=== PATIENT | female | born 1930 | race African-American/Black ===

== ENCOUNTER 2017-05-07 10:01 | Emergency (ER) | payer MEDICARE, OTHER ==
[~2017-05-07] VITALS: Ht 162.6 cm; Wt 63.5 kg
[2017-05-07] MEDS ORDERED: fentaNYL 100 mcg/2 mL IV ONE (10:30)
[2017-05-07 11:04] LABS: HEMATOCRIT 41.5 % (37.0-47.0); HEMOGLOBIN 12.8 G/DL (12.0-16.0); MEAN CORPUSCULAR VOLUME 111 FL (80-99); PLATELET COUNT 320 K/UL (150-450); RED BLOOD COUNT 3.75 M/UL (4.20-5.40); RED CELL DISTRIBUTION WIDTH 16.3 % (11.6-14.8); WHITE BLOOD COUNT 12.1 K/UL (4.8-10.8)
[2017-05-07 11:19] LABS: ANION GAP 8 mmol/L (5-15); BLOOD UREA NITROGEN 17 mg/dL (7-18); CALCIUM 8.4 MG/DL (8.5-10.1); CARBON DIOXIDE 27 MMOL/L (21-32); CHLORIDE 100 MMOL/L (98-107); CREATININE 0.8 MG/DL (0.55-1.30); POTASSIUM 3.6 MMOL/L (3.5-5.1); SODIUM 135 MMOL/L (136-145)
[2017-05-07 11:24] LABS: ALANINE AMINOTRANSFERASE < 6 U/L (12-78); ALBUMIN 3.1 G/DL (3.4-5.0); ALBUMIN/GLOBULIN RATIO 0.5 (1.0-2.7); ALKALINE PHOSPHATASE 70 U/L (46-116); ASPARTATE AMINO TRANSFERASE 12 U/L (15-37); BILIRUBIN,TOTAL 0.7 MG/DL (0.2-1.0)
--- NOTE | 2017-05-07 11:50 | Diagnostic Imaging Report ---
Indication: Neck pain Technique: Spiral acquisitions obtained through the cervical spine. No IV contrast utilized. Multiplanar reconstructions were generated. Total dose length product 237.26 mGycm. CTDIvol(s) 12.12 mGy. Dose reduction achieved using automated exposure control. Comparison: none Findings: The bony alignment is normal. No prevertebral soft tissue swelling. The vertebral body heights are preserved. No acute fractures or dislocations. There is degenerative narrowing of the anterior atlantoaxial joint. At C2-3, the disc space is preserved. There is bilateral facet arthrosis. There is mild narrowing of the neural foramina bilaterally. At C3-4, there is moderate to severe degenerative disc narrowing. Large posterior osteophytes result in moderate narrowing of the spinal canal and quite likely impinge upon the bilateral lateral recesses. There is severe narrowing of the bilateral neural foramina. At C4-5, there is moderate to severe degenerative disc narrowing. There is mild bilateral facet arthrosis. Large posterior osteophytes result in moderate narrowing of the spinal canal, and likely significant impingement upon the bilateral lateral recesses, particularly on the left. There is severe narrowing of the bilateral neural foramina, nearly completely obliterated on the left. At C5-6, there is only minimal degenerative disc narrowing. There is mild bilateral facet arthrosis. No significant disc bulge or protrusion. There is minimal left, moderate right neural foraminal stenosis. At C6-7, the disc space is preserved. There is only minimal neural foraminal stenosis on the right. There is bilateral facet arthrosis. At C7-T1, no significant disc bulge or protrusion, spinal stenosis, or neural foraminal narrowing The included extraspinal soft tissues are unremarkable. Impression: No acute bony trauma Extensive degenerative change, as described The CT scanner at [facility] is accredited by the [employer] and the scans are performed using protocols designed to limit radiation exposure to as low as reasonably achievable to attain images of sufficient resolution adequate for diagnostic evaluation.
[2017-05-07] MEDS ORDERED: HYDROmorphone 1mg/ml Carpuject IVP ONE (12:00)
[2017-05-07] MEDS ORDERED: Hydromorphone 0.5mg/0.5ml inj IVP ONE (12:15)
[2017-05-07 12:30] VITALS: BP 145/80
--- NOTE | 2017-05-07 12:55 | Diagnostic Imaging Report ---
Indication: Chest pain Technique: One view of the chest Comparison: none Findings: There is haziness at the left lung base. This may indicate a small amount of pleural fluid versus infiltrate. The heart size is normal. The aorta is tortuous and calcified. Impression: Left basilar opacity, may reflect pleural fluid and or hazy consolidation. Correlate with clinical findings Other findings as noted
--- NOTE | 2017-05-07 14:58 | Emergency Room Report ---
History of Present Illness General Chief Complaint: Pain Source: Patient Present Illness HPI Patient presents with several weeks of neck pain which has worsened over the last 3 days. She had a steroid injection from her PMD 2 weeks ago which helped somewhat for a few days. Gradually after this, the pain has increased. No trauma. The pain was severe last night and she could not sleep 10/10 - as is now. It radiates bilaterally to her shoulders. There is no numbness or weakness in her arms or extremities. There is some headache, but minimal compared to neck pain. She is scheduled for MRI soon. No sore throat, fevers. Not on blood thinners. No chest pain, NVD, dysuria, swelling or pain in calves. No rashes. Allergies: Coded Allergies: No Known Allergies (Unverified , 05/07/17) Patient History Past Medical History: see triage record Social History: Denies: smoking Social History Narrative with daughter Reviewed Nursing Documentation: PMH: Agreed, PSxH: Agreed Nursing Documentation-PMH Past Medical History: No History, Except For Review of Systems All Other Systems: negative except mentioned in HPI Physical Exam Vital Signs Date Time Temp Pulse Resp B/P (MAP) Pulse Ox O2 Delivery O2 Flow Rate FiO2 05/07/17 10:09 97.3 74 18 135/71 98 Room Air Sp02 EP Interpretation: reviewed, normal General Appearance: well appearing, GCS 15, mild distress Head: normocephalic Eyes: bilateral eye normal inspection, bilateral eye PERRL ENT: moist mucus membranes Neck: no bony tend, tender - bilaterally, not point tenderness, significant muscle spasm with decreased ROm Respiratory: chest non-tender, lungs clear, normal breath sounds Cardiovascular #1: regular rate, rhythm Cardiovascular #2: 2+ radial (R) Gastrointestinal: normal inspection, normal bowel sounds, non tender, no mass, non-distended Musculoskeletal: back normal, gait/station normal, normal range of motion Neurologic: alert, oriented x3, motor strength/tone normal, DTRs symmetric, sensory intact, cerebellar normal, normal gait, speech normal Psychiatric: other - in pain Skin: normal inspection, warm/dry Medical Decision Making Diagnostic Impression: Primary Impression: Cervical pain Additional Impressions: Osteoarthritis Qualified Codes: M15.0 - Primary generalized (osteo)arthritis Degenerative disk disease Qualified Codes: M50.320 - Other cervical disc degeneration, mid-cervical region, unspecified level Osteophyte of cervical spine ER Course Patient with severe neck pain. Ddx: DJD, torticollis, disk disease, other muscle spasm, occult fx amongst others. Severe pain needs urgent evaluation and treatment. Labs, EKG, CXR and CT of neck indicated. Treatment with IV fentanyl and zofran. No red flag sy or findings, but severe pain. Lack of fever makes infective process less likely. Minimal improvement with fentanyl. Dilaudid ordered. EKG RBBB, CXR negative, labs with leukocytosis, elevated ESR, c-reactive protein. CT with DJD and some impingement mostly C45 level. Patient with significant improvement with analgesia. I offered hospitalization if pain was not controlled. Patient requests trial as outpatient. Cervical collar applied by tech with good position and some improvement. Patient stable for outpatient observation and treatment. Discussed with daughter 05/09 - patient doing better. Discussed lab results and advised to return if not doing well. Laboratory Tests Test 05/07/17 10:45 White Blood Count 12.1 K/UL (4.8-10.8) H Red Blood Count 3.75 M/UL (4.20-5.40) L Hemoglobin 12.8 G/DL (12.0-16.0) Hematocrit 41.5 % (37.0-47.0) Mean Corpuscular Volume 111 FL (80-99) H Mean Corpuscular Hemoglobin 34.2 PG (27.0-31.0) H Mean Corpuscular Hemoglobin Concent 30.9 G/DL (32.0-36.0) L Red Cell Distribution Width 16.3 % (11.6-14.8) H Platelet Count 320 K/UL (150-450) Mean Platelet Volume 6.6 FL (6.5-10.1) Neutrophils (%) (Auto) % (45.0-75.0) Lymphocytes (%) (Auto) % (20.0-45.0) Monocytes (%) (Auto) % (1.0-10.0) Eosinophils (%) (Auto) % (0.0-3.0) Basophils (%) (Auto) % (0.0-2.0) Differential Total Cells Counted 100 Neutrophils % (Manual) 82 % (45-75) H Lymphocytes % (Manual) 8 % (20-45) L Monocytes % (Manual) 10 % (1-10) Eosinophils % (Manual) 0 % (0-3) Basophils % (Manual) 0 % (0-2) Band Neutrophils 0 % (0-8) Platelet Estimate Adequate Platelet Morphology Normal Anisocytosis 1+ Macrocytosis 1+ Erythrocyte Sedimentation Rate 81 MM/HR (0-42) H Prothrombin Time 10.2 SEC (9.30-11.50) Prothrombin Time INR 1.0 (0.9-1.1) PTT 24 SEC (23-33) Sodium Level 135 MMOL/L (136-145) L Potassium Level 3.6 MMOL/L (3.5-5.1) Chloride Level 100 MMOL/L (98-107) Carbon Dioxide Level 27 MMOL/L (21-32) Anion Gap 8 mmol/L (5-15) Blood Urea Nitrogen 17 mg/dL (7-18) Creatinine 0.8 MG/DL (0.55-1.30) Estimate Glomerular Filtration Rate mL/min (>60) Glucose Level 111 MG/DL (74-106) H Calcium Level 8.4 MG/DL (8.5-10.1) L Total Bilirubin 0.7 MG/DL (0.2-1.0) Aspartate Amino Transferase (AST) 12 U/L (15-37) L Alanine Aminotransferase (ALT) < 6 U/L (12-78) L Alkaline Phosphatase 70 U/L (46-116) C-Reactive Protein, Quantitative 11.9 mg/dL (0.00-0.90) H Total Protein 8.9 G/DL (6.4-8.2) H Albumin 3.1 G/DL (3.4-5.0) L Globulin 5.8 g/dL Albumin/Globulin Ratio 0.5 (1.0-2.7) L EKG Diagnostic Results Rate: normal Rhythm: NSR ST Segments: no acute changes - RBBB Rhythm Strip Diag. Results EP Interpretation: yes Rhythm: NSR, no PVC's, no ectopy, other - from EKG CT/MRI/US Diagnostic Results CT/MRI/US Diagnostic Results : Imaging Test Ordered: c spine Impression Findings: The bony alignment is normal. No prevertebral soft tissue swelling. The vertebral body heights are preserved. No acute fractures or dislocations. There is degenerative narrowing of the anterior atlantoaxial joint. At C2-3, the disc space is preserved. There is bilateral facet arthrosis. There is mild narrowing of the neural foramina bilaterally. At C3-4, there is moderate to severe degenerative disc narrowing. Large posterior osteophytes result in moderate narrowing of the spinal canal and quite likely impinge upon the bilateral lateral recesses. There is severe narrowing of the bilateral neural foramina. At C4-5, there is moderate to severe degenerative disc narrowing. There is mild bilateral facet arthrosis. Large posterior osteophytes result in moderate narrowing of the spinal canal, and likely significant impingement upon the bilateral lateral recesses, particularly on the left. There is severe narrowing of the bilateral neural foramina, nearly completely obliterated on the left. At C5-6, there is only minimal degenerative disc narrowing. There is mild bilateral facet arthrosis. No significant disc bulge or protrusion. There is minimal left, moderate right neural foraminal stenosis. At C6-7, the disc space is preserved. There is only minimal neural foraminal stenosis on the right. There is bilateral facet arthrosis. At C7-T1, no significant disc bulge or protrusion, spinal stenosis, or neural foraminal narrowing The included extraspinal soft tissues are unremarkable. Impression: No acute bony trauma Extensive degenerative change, as described Last Vital Signs Date Time Temp Pulse Resp B/P (MAP) Pulse Ox O2 Delivery O2 Flow Rate FiO2 05/07/17 15:25 97.6 70 16 158/97 94 Room Air Status: improved Disposition: HOME, SELF-CARE Condition: Improved Scripts Ibuprofen* (MOTRIN*) 600 Mg Tablet 600 MG ORAL Q6H Y for For Pain, #20 TAB Prov: Kwaku Morton M.D. 05/07/17 Tramadol Hcl* (ULTRAM*) 50 Mg Tablet 50 MG ORAL Q6H Y for For Pain, #20 TAB 0 Refills Prov: Kwaku Morton M.D. 05/07/17 Referrals: NON PHYSICIAN (PCP) Kwaku Morton M.D. May 07, 2017 14:58
[2017-05-07] MEDS ORDERED: TRAMADOL HCL50 MG ORAL (15:00)
[2017-05-07] MEDS ORDERED: IBUPROFEN600 MG ORAL (15:00)
[2017-05-07 15:25] VITALS: BP 158/97
--- NOTE | 2017-05-19 00:14 | Cardiology Report ---
APPROVED REPORT EKG Measurement Heart [id number] Normal sinus rhythm Right bundle branch block Abnormal ECG
== END 2017-05-07 15:25 | disposition home or self-care (01) ==
LOC: EMR 10:46
DX: M54.2 Cervicalgia (principal); M50.321 Other cervical disc degeneration at C4-C5 level; M47.812 Spondylosis without myelopathy or radiculopathy, cervical region; R79.89 Other specified abnormal findings of blood chemistry; D72.829 Elevated white blood cell count, unspecified
CPT/HCPCS: 36415; 71010; 72125; 80053; 85007; 85025; 85610; 85651; 85730; 86140; 93005; 96374; 96375; 99284; J1170; J2405; J3010

== ENCOUNTER 2017-09-27 16:10 | Inpatient (IN) | payer MEDICARE, OTHER ==
[~2017-09-27] VITALS: Ht 175.3 cm; Wt 69.7 kg
[2017-09-27] VITALS (7 sets, daily range): BP systolic 92–114; BP diastolic 55–71
[~2017-09-27 16:10] MED LIST: IBUPROFEN600 MG ORAL; TRAMADOL HCL50 MG ORAL
[2017-09-27] MEDS ORDERED: Pantoprazole Inj IV ONE (16:15)
[2017-09-27] MEDS ORDERED: Morphine Sulfate 4mg/ml Inj IVP ONE (16:30)
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
[2017-09-27 16:41] LABS: HEMATOCRIT 42.2 % (37.0-47.0); HEMOGLOBIN 13.3 G/DL (12.0-16.0); MEAN CORPUSCULAR VOLUME 115 FL (80-99); PLATELET COUNT 113 K/UL (150-450); RED BLOOD COUNT 3.68 M/UL (4.20-5.40); RED CELL DISTRIBUTION WIDTH 18.6 % (11.6-14.8); WHITE BLOOD COUNT 8.3 K/UL (4.8-10.8)
[2017-09-27 17:00] LABS: ANION GAP 25 mmol/L (5-15); BLOOD UREA NITROGEN 22 mg/dL (7-18); CALCIUM 9.2 MG/DL (8.5-10.1); CARBON DIOXIDE 13 MMOL/L (21-32); CHLORIDE 102 MMOL/L (98-107); CREATININE 1.7 MG/DL (0.55-1.30); POTASSIUM 3.6 MMOL/L (3.5-5.1); SODIUM 140 MMOL/L (136-145)
[2017-09-27 17:04] LABS: ALANINE AMINOTRANSFERASE 87 U/L (12-78); ALBUMIN 3.2 G/DL (3.4-5.0); ALBUMIN/GLOBULIN RATIO 0.7 (1.0-2.7); ALKALINE PHOSPHATASE 55 U/L (46-116); ASPARTATE AMINO TRANSFERASE 109 U/L (15-37); BILIRUBIN,TOTAL 0.4 MG/DL (0.2-1.0)
[2017-09-27] MEDS ORDERED: Piperacillin/Tazobactam 3.375 GM in NS 110 ML IVPB ONE (17:30)
[2017-09-27] MEDS ORDERED: BETIMOL5 M2 OP (18:53)
[2017-09-27] MEDS ORDERED: HYDREA500 MG PO (18:53)
[2017-09-27] MEDS ORDERED: Milk of Magnesia 30ml Ud ORAL PRN (23:15)
[2017-09-28] VITALS (24 sets, daily range): BP systolic 87–115; BP diastolic 54–67
[2017-09-28] MEDS ORDERED: Piperacillin/Tazobactam 3.375 GM in D5W 110 ML IVPB SCH (01:00)
[2017-09-28 07:16] LABS: ALANINE AMINOTRANSFERASE 196 U/L (12-78); ALBUMIN 2.8 G/DL (3.4-5.0); ALKALINE PHOSPHATASE 56 U/L (46-116); ASPARTATE AMINO TRANSFERASE 222 U/L (15-37); BILIRUBIN,DIRECT 0.1 MG/DL (0.0-0.3); BILIRUBIN,TOTAL 0.5 MG/DL (0.2-1.0)
[2017-09-28 07:18] LABS: BASOPHILS % (AUTO) 0.8 % (0.0-2.0); EOSINOPHILS % (AUTO) 0.7 % (0.0-3.0); HEMOGLOBIN 11.1 G/DL (12.0-16.0); LYMPHOCYTES % (AUTO) 34.9 % (20.0-45.0); MEAN CORPUSCULAR VOLUME 110 FL (80-99); MONOCYTES % (AUTO) 7.3 % (1.0-10.0); NEUTROPHILS % (AUTO) 56.2 % (45.0-75.0); PLATELET COUNT 130 K/UL (150-450); RED CELL DISTRIBUTION WIDTH 18.4 % (11.6-14.8); WHITE BLOOD COUNT 6.6 K/UL (4.8-10.8)
[2017-09-28 07:19] LABS: ALANINE AMINOTRANSFERASE 198 U/L (12-78); ALBUMIN 2.9 G/DL (3.4-5.0); ALBUMIN/GLOBULIN RATIO 0.7 (1.0-2.7); ALKALINE PHOSPHATASE 57 U/L (46-116); ANION GAP 9 mmol/L (5-15); ASPARTATE AMINO TRANSFERASE 220 U/L (15-37); BILIRUBIN,TOTAL 0.6 MG/DL (0.2-1.0); BLOOD UREA NITROGEN 22 mg/dL (7-18); CALCIUM 8.2 MG/DL (8.5-10.1); CARBON DIOXIDE 25 MMOL/L (21-32); CHLORIDE 109 MMOL/L (98-107); CREATININE 1.3 MG/DL (0.55-1.30); POTASSIUM 4.2 MMOL/L (3.5-5.1); SODIUM 143 MMOL/L (136-145)
[2017-09-28] MEDS ORDERED: Aspirin EC 81mg tab ORAL SCH (09:00)
[2017-09-28] MEDS: Heparin 5000 units/ml inj SUBQ SCH ×2 (09:00→21:32)
--- NOTE | 2017-09-28 09:33 | Diagnostic Imaging Report ---
Indication: Abdominal pain Technique: Continuous helical transaxial imaging of the abdomen and pelvis was obtained from the lung bases to the pubic symphysis. No intravenous contrast was administered. Coronal 2-D reformats were also obtained. Automatic Exposure Control was utilized. Total Dose length Product (DLP): 668.[address] Dose Index Volume (CTDIvol): 13.88 mGy Comparison: none Findings: The lung bases are essentially clear. There is a small hiatal hernia present. Solid organ evaluation limited by lack of contrast material. The spleen is absent. Small nodule noted in the left upper quadrant may be regenerating splenic tissue. There is suggestion of some ill definition and thickening of the wall the gallbladder. Correlate clinically. There is a mild apparent hydroureteronephrosis on the right side. There is no evidence of obstructing stone or nonobstructing stone. Small amount of air noted in the urinary bladder which may be echogenic from recent Cobian placement. Correlate clinically. Moderate fecal retention in the rectum which is distended. Prior partial colon resection noted in the area of the cecum. Correlate clinically. No evidence of bowel obstruction. No free fluid is identified. There is narrowing of intervertebral discs and accompanying endplate osteophyte formation. Hypertrophied facet joints also demonstrated.. IMPRESSION: Moderate fecal retention and impacted slightly distended rectum. Right hydronephrosis. No evidence of obstructing stone. Findings could be on the basis of recently passed stone or pyelonephritis. Correlate clinically Scarring in the left kidney. Suggestion of wall thickening involving the gallbladder. Underlying stones not excluded. Status post previous partial cecal resection and surgery in the right lower quadrant abdomen. Degenerative changes of the spine. Absent spleen. Small nodule may be accessory or regenerating splenic nodule. Periportal edema nonspecific. Hiatal hernia 6 [facility] has communicated the preliminary results to the Emergency Department. Their findings are largely concordant with this report. The CT scanner at [facility] is accredited by the [employer] and the scans are performed using dose optimization techniques as appropriate to a performed exam including Automatic Exposure control.
[2017-09-28] MEDS: Piperacillin/Tazobactam 3.375 GM in D5W 110 ML IVPB SCH ×2 (09:42→17:12)
[2017-09-28] MEDS: Timolol 0.5% Op Soln 2.5ml BOTH EYES SCH ×2 (10:43→17:12)
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
--- NOTE | 2017-09-28 10:55 | Diagnostic Imaging Report ---
Indication: Chest pain Comparison: 05/07/2017 A single view chest radiograph was obtained. Findings: No definite infiltrate or pulmonary vascular congestion identified. The heart is enlarged. The aorta is mildly enlarged consistent with atherosclerotic vascular disease. The bones are osteopenic. Impression: No acute disease
--- NOTE | 2017-09-28 13:27 | Consultation ---
History of Present Illness General Date patient seen: September 28, 2017 Chief Complaint: Dyspnea/Respdistress Reason for Consultation: abdominal pain Present Illness HPI 86F presented to ED with complaints of sob, respiratory discomfort, abdominal pain. in ED found to have abnormal labs and exam with pain. was admitted to ICU for care and management. given fluids for resuscitation and surgery called to evaluate abdominal pain. CT with mild gb wall thickening. abdominal pain improved with fluids. Allergies: Coded Allergies: No Known Allergies (Unverified , 09/27/17) Medication History Scheduled PRN Ibuprofen* (Motrin*), 600 MG ORAL Q6H PRN for For Pain Tramadol Hcl* (Ultram*), 50 MG ORAL Q6H PRN for For Pain Miscellaneous Medications Hydroxyurea* (Hydrea*), Unknown Dose PO, (Reported) Timolol (Betimol), Unknown Dose OP, (Reported) Patient History History Provided By: Patient, Medical Record, PMD Healthcare decision maker N Resuscitation status Full Code Advanced Directive on File Past Medical/Surgical History Past Medical/Surgical History: (1) Osteoarthritis (2) Cervical pain (3) Degenerative disk disease (4) Osteophyte of cervical spine (5) Dyspnea and respiratory abnormalities (6) Dyspnea (7) Lactic acidosis (8) Abdominal pain (9) Severe sepsis (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 Review of Systems All Other Systems: negative except mentioned in HPI Physical Exam General Appearance: no apparent distress, alert Lines, tubes and drains: peripheral HEENT: mucous membranes moist, PERRL Neck: normal inspection Respiratory/Chest: lungs clear, normal breath sounds, no respiratory distress, no accessory muscle use Cardiovascular/Chest: normal peripheral pulses, normal rate Abdomen: normal bowel sounds, non tender, soft, no organomegaly, no mass Extremities: normal range of motion Skin Exam: normal pigmentation Neurologic: alert, responsive Last 24 Hour Vital Signs Date Time Temp Pulse Resp B/P (MAP) Pulse Ox O2 Delivery O2 Flow Rate FiO2 09/28/17 13:00 81 18 100/56 100 Nasal Cannula 2.0 09/28/17 12:38 83 100/59 09/28/17 12:00 80 18 100/59 100 Nasal Cannula 2.0 09/28/17 12:00 80 09/28/17 11:00 98.8 78 18 105/66 100 Nasal Cannula 2.0 98.8 09/28/17 10:00 80 20 110/64 100 Nasal Cannula 2.0 09/28/17 09:00 89 20 112/66 100 Nasal Cannula 2.0 09/28/17 08:00 87 09/28/17 08:00 93 22 107/56 99 Nasal Cannula 2.0 09/28/17 07:00 88 20 98/61 100 Nasal Cannula 2.0 09/28/17 06:00 98.0 92 20 96/57 100 Nasal Cannula 2.0 98.0 09/28/17 05:00 93 21 93/61 100 Nasal Cannula 2.0 09/28/17 04:00 97.0 91 21 89/59 100 Nasal Cannula 2.0 97.0 09/28/17 04:00 94 09/28/17 03:00 91 21 87/54 100 Nasal Cannula 2.0 09/28/17 02:00 94 21 97/61 100 Nasal Cannula 2.0 09/28/17 01:00 96 18 92/63 100 Nasal Cannula 2.0 09/28/17 00:00 97.1 96 20 95/59 100 Nasal Cannula 2.0 97.1 09/28/17 00:00 97 09/27/17 23:00 97 21 92/64 100 Nasal Cannula 2.0 09/27/17 22:00 102 21 93/61 100 Nasal Cannula 3.0 09/27/17 21:00 102 21 102/67 100 Nasal Cannula 3.0 09/27/17 20:00 105 09/27/17 20:00 94.4 97 20 114/67 97 Nasal Cannula 3.0 94.4 09/27/17 20:00 96.4 110 20 100/71 99 Nasal Cannula 3.0 96.4 09/27/17 20:00 [id number] 97 20 114/67 97 Nasal Cannula 3.0 201.9 09/27/17 19:10 20 114/67 97 Nasal Cannula 3.0 09/27/17 17:15 112 22 96/55 94 Nasal Cannula 3.0 09/27/17 16:45 120 20 106/70 95 Non-Rebreather 15.0 09/27/17 16:34 120 Non-Rebreather 09/27/17 16:07 120 20 102/70 95 Non-Rebreather Intake and Output 09/27/17 09/28/17 19:00 07:00 Intake Total 1610 ml 1125 ml Output Total 600 ml Balance 1610 ml 525 ml Intake IV Total 1610 ml 1125 ml Output Urine Total 600 ml # Voids 2 Laboratory Tests Test 09/27/17 16:22 09/27/17 16:35 09/27/17 19:32 09/28/17 05:55 White Blood Count 8.3 K/UL (4.8-10.8) 6.6 K/UL (4.8-10.8) Red Blood Count 3.68 M/UL (4.20-5.40) L 3.10 M/UL (4.20-5.40) L Hemoglobin 13.3 G/DL (12.0-16.0) 11.1 G/DL (12.0-16.0) L Hematocrit 42.2 % (37.0-47.0) 34.0 % (37.0-47.0) L Mean Corpuscular Volume 115 FL (80-99) H 110 FL (80-99) H Mean Corpuscular Hemoglobin 36.1 PG (27.0-31.0) H 35.9 PG (27.0-31.0) H Mean Corpuscular Hemoglobin Concent 31.5 G/DL (32.0-36.0) L 32.7 G/DL (32.0-36.0) Red Cell Distribution Width 18.6 % (11.6-14.8) H 18.4 % (11.6-14.8) H Platelet Count 113 K/UL (150-450) L 130 K/UL (150-450) L Mean Platelet Volume 6.6 FL (6.5-10.1) 5.6 FL (6.5-10.1) L Neutrophils (%) (Auto) % (45.0-75.0) 56.2 % (45.0-75.0) Lymphocytes (%) (Auto) % (20.0-45.0) 34.9 % (20.0-45.0) Monocytes (%) (Auto) % (1.0-10.0) 7.3 % (1.0-10.0) Eosinophils (%) (Auto) % (0.0-3.0) 0.7 % (0.0-3.0) Basophils (%) (Auto) % (0.0-2.0) 0.8 % (0.0-2.0) Differential Total Cells Counted 100 Neutrophils % (Manual) 28 % (45-75) L Lymphocytes % (Manual) 67 % (20-45) H Monocytes % (Manual) 5 % (1-10) Eosinophils % (Manual) 0 % (0-3) Basophils % (Manual) 0 % (0-2) Band Neutrophils 0 % (0-8) Nucleated Red Blood Cells 4 /100 WBC Platelet Estimate Decreased L Platelet Morphology Normal Polychromasia 1+ Anisocytosis 1+ Macrocytosis 2+ Prothrombin Time 10.7 SEC (9.30-11.50) Prothromb Time International Ratio 1.0 (0.9-1.1) Activated Partial Thromboplast Time 27 SEC (23-33) Sodium Level 140 MMOL/L (136-145) 143 MMOL/L (136-145) Potassium Level 3.6 MMOL/L (3.5-5.1) 4.2 MMOL/L (3.5-5.1) Chloride Level 102 MMOL/L (98-107) 109 MMOL/L (98-107) H Carbon Dioxide Level 13 MMOL/L (21-32) L 25 MMOL/L (21-32) Anion Gap 25 mmol/L (5-15) H 9 mmol/L (5-15) Blood Urea Nitrogen 22 mg/dL (7-18) H 22 mg/dL (7-18) H Creatinine 1.7 MG/DL (0.55-1.30) H 1.3 MG/DL (0.55-1.30) Estimat Glomerular Filtration Rate mL/min (>60) mL/min (>60) Glucose Level 394 MG/DL (74-106) H 93 MG/DL (74-106) # Calcium Level 9.2 MG/DL (8.5-10.1) 8.2 MG/DL (8.5-10.1) L Total Bilirubin 0.4 MG/DL (0.2-1.0) 0.5 MG/DL (0.2-1.0) Aspartate Amino Transf (AST/SGOT) 109 U/L (15-37) H 222 U/L (15-37) H Alanine Aminotransferase (ALT/SGPT) 87 U/L (12-78) H 196 U/L (12-78) H Alkaline Phosphatase 55 U/L (46-116) 56 U/L (46-116) Total Protein 8.1 G/DL (6.4-8.2) 6.9 G/DL (6.4-8.2) Albumin 3.2 G/DL (3.4-5.0) L 2.8 G/DL (3.4-5.0) L Globulin 4.9 g/dL 4.1 g/dL Albumin/Globulin Ratio 0.7 (1.0-2.7) L 0.7 (1.0-2.7) L Lipase 207 U/L (73-393) Lactic Acid Level 10.80 mmol/L (0.66-2.22) H 3.10 mmol/L (0.66-2.22) H 1.80 mmol/L (0.66-2.22) Magnesium Level 1.8 MG/DL (1.8-2.4) Direct Bilirubin 0.1 MG/DL (0.0-0.3) Troponin I 2.049 ng/mL (0.000-0.056) Vitamin B12 Level 454 PG/ML (193-986) Thyroid Stimulating Hormone (TSH) 1.930 uiU/mL (0.358-3.740) Test 09/28/17 12:15 Troponin I 1.067 ng/mL (0.000-0.056) Height (Feet): 5 Height (Inches): 9.00 Weight (Pounds): 140 Medications Current Medications Medications (Trade) Dose Ordered Sig/Marivel Route PRN Reason Start Time Stop Time Status Last Admin Dose Admin Acetaminophen (Tylenol) 650 mg Q4H PRN ORAL Mild Pain/Temp > 100.5 09/27/17 23:15 10/27/17 23:14 Aspirin (ASA) 81 mg DAILY ORAL 09/29/17 09:00 10/29/17 08:59 Carvedilol (Coreg) 3.125 mg EVERY 12 HOURS ORAL 09/28/17 21:00 10/28/17 20:59 Heparin Sodium (Porcine) (Heparin 5000 units/ml) 5,000 units EVERY 12 HOURS SUBQ 09/28/17 09:00 10/28/17 08:59 Magnesium Hydroxide (Mom) 30 ml HSPRN PRN ORAL Constipation 09/27/17 23:15 10/27/17 23:14 Piperacillin Sod/ Tazobactam Sod 3.375 gm/Dextrose 110 ml @ 27.5 mls/hr Q8H IVPB 09/28/17 09:00 10/05/17 08:59 09/28/17 09:42 Sodium Chloride 1,000 ml @ 125 mls/hr Q8H IV 09/27/17 21:30 10/27/17 21:29 09/28/17 05:31 Timolol Maleate (Timoptic 0.5% Op Soln) 1 drop TWICE A DAY BOTH EYES 09/28/17 09:00 10/28/17 08:59 09/28/17 10:43 Assessment/Plan Problem List: (1) Abdominal pain Assessment & Plan: abdominal pain resolved since admission. lactic acidosis resolved. labs improved. lft's elevated but improving. troponin elevated but now trending down. exam being. CT with mild gb wall thickening. abdominal pain and elevated lft's likely related to low flow state. likely very dehydrated on admission as noted by lactic acidosis and now improved with resuscitation. will await ultrasound findings as well. okay for diet will cont to follow with recs. thank you for this consultation ICD Codes: R10.9 - Unspecified abdominal pain SNOMED: [id number] Qualifiers: Qualified Codes: R10.84 - Generalized abdominal pain Status: stable ZakiMomo basilio September 28, 2017 13:27
--- NOTE | 2017-09-28 13:45 | Progress Note ---
DATE: 09/28/2017 CARDIOLOGY PROGRESS NOTE SUBJECTIVE: The patient was seen last evening in the intensive care unit. Her blood pressure was tenuous. She was able to avoid pressors, but still required volume resuscitation. This morning, she feels better. She has no nausea, vomiting, or dizziness and has no chest pain. OBJECTIVE: VITAL SIGNS: Blood pressure 107/56, pulse 87, respirations 22, afebrile, and oxygen saturation on 2 liters is 99%. HEENT: Conjunctivae are pink. Oropharynx clear. NECK: Supple. LUNGS: Clear. CARDIAC: Regular rhythm and rate. Normal S1, S2 with a fourth heart sound. ABDOMEN: Soft. No focal tenderness. No edema of the lower extremities. LABORATORY DATA: Notable for troponin of 2.049. AST and ALT are elevated at 220 and 198. Alkaline phosphatase is normal. Albumin is 2.8. White count is 6.6 and hemoglobin 11.1. IMPRESSION: 1. Acute myocardial infarction likely precipitated by hypoperfusion in the setting of shock. 2. Sepsis with shock. 3. Lactic acidosis, recovered. 4. Transaminitis reflecting possible acute hepatobiliary process. PLAN: 1. Continue IV fluids. 2. Monitor volume status. 3. Add beta-rad, antiplatelet therapy with caution if no signs of bleeding. 4. Await further imaging studies of the hepatobiliary tract as well as an echocardiogram. Kwaku Morel M.D. DR: SALLY JOB#: [id number] CC:
--- NOTE | 2017-09-28 13:48 | Cardiology Report ---
APPROVED REPORT EXAM: Two-dimensional and M-mode echocardiogram with Doppler and color Doppler. M-Mode DIMENSIONS IVSd1.2 (0.7-1.1cm)Left Atrium (MM)2.9 (1.6-4.0cm) LVDd3.5 (3.5-5.6cm)Aortic Root3.3 (2.0-3.7cm) PWd1.2 (0.7-1.1cm)Aortic Cusp Exc.1.7 (1.5-2.0cm) IVSs1.5 cm LVDs2.3 (2.5-4.0cm) PWs1.5 cm Normal left ventricular chamber size, systolic function and wall motion. Left ventricular ejection fraction estimated to be 65-70 %. No evidence of left ventricular hypertrophy. No evidence of pericardial effusion. All other cardiac chamber sizes are within normal limits. Focal aortic valve sclerosis with adequate cusp excursion. Mildly Thickened mitral valve leaflets with normal excursion. Mildly Mitral annulus and aortic root calcification. Normal pulmonic valve structure. Normal tricuspid valve structure. IVC dilated at 2.6cm without physiologic collapse suggestive of increased RA pressure. A color flow and spectral Doppler study was performed and revealed: No aortic regurgitation. Trace mitral regurgitation. Mitral diastolic velocities suggest reduced left ventricular relaxation c/w mild LV diastolic dysfunction (Grade I ). Moderate to severe tricuspid regurgitation. Tricuspid systolic velocities suggests peak right ventricular systolic pressure of 40 mmHg, consistent with mild pulmonary hypertension. No Pulmonic regurgitation present.
--- NOTE | 2017-09-28 13:50 | Cardiology Report ---
APPROVED REPORT EKG Measurement Heart [id number] Sinus tachycardia Right atrial enlargement Right bundle branch block Abnormal ECG
--- NOTE | 2017-09-28 16:54 | Diagnostic Imaging Report ---
Indication:Abdominal pain Technique: Grayscale and duplex Doppler imaging of the abdomen performed. Comparison: CT abdomen 09/27/2017 Findings: The liver, demonstrated part of the pancreas, gallbladder, aorta and IVC appear unremarkable. Spleen is not seen. Small nodule noted in the left upper quadrant likely regenerating splenic tissue. Kidneys are unremarkable. Again there is minimal fullness in the right renal pelvis. 1 cm right renal cyst noted. There is no biliary ductal dilatation identified. Doppler evaluation of the main portal vein shows patency. There is trace ascites in the area of the liver. No hydronephrosis seen. Impression: No acute findings. Spleen not identified. Small splenic nodule noted. Trace ascites in the right side of abdomen. Right renal cyst. Minimal pelvocaliectasis in the right kidney.
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
--- NOTE | 2017-09-28 23:10 | Consultation ---
History of Present Illness General Date patient seen: September 28, 2017 Chief Complaint: Dyspnea/Respdistress Referring physician: Dr. Morel Reason for Consultation: abdominal pain Present Illness HPI 86-year-old female brought in by EMS after increased abdominal pain as well as hypotension. The pt was confused upon admission. During my evaluation the pt was more alert and was able to answer simple questions. the pt was somewhat irritable and has cognitive impairment Allergies: Coded Allergies: No Known Allergies (Unverified , 09/27/17) Medication History Scheduled PRN Ibuprofen* (Motrin*), 600 MG ORAL Q6H PRN for For Pain Tramadol Hcl* (Ultram*), 50 MG ORAL Q6H PRN for For Pain Miscellaneous Medications Hydroxyurea* (Hydrea*), Unknown Dose PO, (Reported) Timolol (Betimol), Unknown Dose OP, (Reported) Patient History Limited by: medical condition History Provided By: Patient, Medical Record Healthcare decision maker N Resuscitation status Full Code Advanced Directive on File Past Medical/Surgical History Past Medical/Surgical History: (1) Dyspnea (2) Lactic acidosis (3) Severe sepsis (4) History of hematologic disorder (5) Dyspnea and respiratory abnormalities (6) Osteoarthritis (7) Cervical pain (8) Degenerative disk disease (9) Osteophyte of cervical spine (10) Abdominal pain Review of Systems Psychiatric: Reports: anxiety Physical Exam General Appearance: WD/WN, no apparent distress, alert Last 24 Hour Vital Signs Date Time Temp Pulse Resp B/P (MAP) Pulse Ox O2 Delivery O2 Flow Rate FiO2 09/28/17 22:00 77 20 107/59 99 Nasal Cannula 2.0 09/28/17 21:31 81 115/57 09/28/17 21:00 76 20 115/57 100 Nasal Cannula 2.0 09/28/17 20:00 98.3 82 17 102/57 98 Nasal Cannula 2.0 98.3 09/28/17 20:00 80 09/28/17 19:00 75 17 113/67 100 Nasal Cannula 2.0 09/28/17 18:00 77 17 110/66 100 Nasal Cannula 2.0 09/28/17 17:00 82 17 105/63 100 Nasal Cannula 2.0 09/28/17 16:00 77 09/28/17 16:00 98.7 78 18 110/65 100 Nasal Cannula 2.0 98.7 09/28/17 15:00 80 18 102/57 100 Nasal Cannula 2.0 09/28/17 14:00 79 18 105/55 100 Nasal Cannula 2.0 09/28/17 13:00 81 18 100/56 100 Nasal Cannula 2.0 09/28/17 12:38 83 100/59 09/28/17 12:00 80 18 100/59 100 Nasal Cannula 2.0 09/28/17 12:00 80 09/28/17 11:00 98.8 78 18 105/66 100 Nasal Cannula 2.0 98.8 09/28/17 10:00 80 20 110/64 100 Nasal Cannula 2.0 09/28/17 09:00 89 20 112/66 100 Nasal Cannula 2.0 09/28/17 08:00 87 09/28/17 08:00 93 22 107/56 99 Nasal Cannula 2.0 09/28/17 07:00 88 20 98/61 100 Nasal Cannula 2.0 09/28/17 06:00 98.0 92 20 96/57 100 Nasal Cannula 2.0 98.0 09/28/17 05:00 93 21 93/61 100 Nasal Cannula 2.0 09/28/17 04:00 97.0 91 21 89/59 100 Nasal Cannula 2.0 97.0 09/28/17 04:00 94 09/28/17 03:00 91 21 87/54 100 Nasal Cannula 2.0 09/28/17 02:00 94 21 97/61 100 Nasal Cannula 2.0 09/28/17 01:00 96 18 92/63 100 Nasal Cannula 2.0 09/28/17 00:00 97.1 96 20 95/59 100 Nasal Cannula 2.0 97.1 09/28/17 00:00 97 Intake and Output 09/27/17 09/28/17 19:00 07:00 Intake Total 1610 ml 1125 ml Output Total 600 ml Balance 1610 ml 525 ml IV Total 1610 ml 1125 ml Output Urine Total 600 ml # Voids 2 Laboratory Tests Test 09/28/17 05:55 09/28/17 12:15 White Blood Count 6.6 K/UL (4.8-10.8) Red Blood Count 3.10 M/UL (4.20-5.40) L Hemoglobin 11.1 G/DL (12.0-16.0) L Hematocrit 34.0 % (37.0-47.0) L Mean Corpuscular Volume 110 FL (80-99) H Mean Corpuscular Hemoglobin 35.9 PG (27.0-31.0) H Mean Corpuscular Hemoglobin Concent 32.7 G/DL (32.0-36.0) Red Cell Distribution Width 18.4 % (11.6-14.8) H Platelet Count 130 K/UL (150-450) L Mean Platelet Volume 5.6 FL (6.5-10.1) L Neutrophils (%) (Auto) 56.2 % (45.0-75.0) Lymphocytes (%) (Auto) 34.9 % (20.0-45.0) Monocytes (%) (Auto) 7.3 % (1.0-10.0) Eosinophils (%) (Auto) 0.7 % (0.0-3.0) Basophils (%) (Auto) 0.8 % (0.0-2.0) Sodium Level 143 MMOL/L (136-145) Potassium Level 4.2 MMOL/L (3.5-5.1) Chloride Level 109 MMOL/L (98-107) H Carbon Dioxide Level 25 MMOL/L (21-32) Anion Gap 9 mmol/L (5-15) Blood Urea Nitrogen 22 mg/dL (7-18) H Creatinine 1.3 MG/DL (0.55-1.30) Estimat Glomerular Filtration Rate mL/min (>60) Glucose Level 93 MG/DL (74-106) # Lactic Acid Level 1.80 mmol/L (0.66-2.22) Calcium Level 8.2 MG/DL (8.5-10.1) L Magnesium Level 1.8 MG/DL (1.8-2.4) Total Bilirubin 0.5 MG/DL (0.2-1.0) Direct Bilirubin 0.1 MG/DL (0.0-0.3) Aspartate Amino Transf (AST/SGOT) 222 U/L (15-37) H Alanine Aminotransferase (ALT/SGPT) 196 U/L (12-78) H Alkaline Phosphatase 56 U/L (46-116) Troponin I 2.049 ng/mL (0.000-0.056) 1.067 ng/mL (0.000-0.056) Total Protein 6.9 G/DL (6.4-8.2) Albumin 2.8 G/DL (3.4-5.0) L Globulin 4.1 g/dL Albumin/Globulin Ratio 0.7 (1.0-2.7) L Vitamin B12 Level 454 PG/ML (193-986) Thyroid Stimulating Hormone (TSH) 1.930 uiU/mL (0.358-3.740) Height (Feet): 5 Height (Inches): 9.00 Weight (Pounds): 140 Medications Current Medications Medications (Trade) Dose Ordered Sig/Marivel Route PRN Reason Start Time Stop Time Status Last Admin Dose Admin Acetaminophen (Tylenol) 650 mg Q4H PRN ORAL Mild Pain/Temp > 100.5 09/27/17 23:15 10/27/17 23:14 Aspirin (ASA) 81 mg DAILY ORAL 09/29/17 09:00 10/29/17 08:59 Carvedilol (Coreg) 3.125 mg EVERY 12 HOURS ORAL 09/28/17 21:00 10/28/17 20:59 09/28/17 21:31 Heparin Sodium (Porcine) (Heparin 5000 units/ml) 5,000 units EVERY 12 HOURS SUBQ 09/28/17 09:00 10/28/17 08:59 09/28/17 21:32 Magnesium Hydroxide (Mom) 30 ml HSPRN PRN ORAL Constipation 09/27/17 23:15 10/27/17 23:14 Piperacillin Sod/ Tazobactam Sod 3.375 gm/Dextrose 110 ml @ 27.5 mls/hr Q8H IVPB 09/28/17 09:00 10/05/17 08:59 09/28/17 17:12 Sodium Chloride 1,000 ml @ 125 mls/hr Q8H IV 09/27/17 21:30 10/27/17 21:29 09/28/17 21:45 Timolol Maleate (Timoptic 0.5% Op Soln) 1 drop TWICE A DAY BOTH EYES 09/28/17 09:00 10/28/17 08:59 09/28/17 17:12 Assessment/Plan Assessment/Plan encephalopathy resolving anxiety -no meds at this time [place] M.D. September 28, 2017 23:10
[2017-09-29] VITALS (22 sets, daily range): BP systolic 102–125; BP diastolic 50–66
[2017-09-29] MEDS: Piperacillin/Tazobactam 3.375 GM in D5W 110 ML IVPB SCH ×3 (02:18→18:12)
[2017-09-29 06:06] LABS: EOSINOPHILS % (AUTO) 2.2 % (0.0-3.0); HEMATOCRIT 34.3 % (37.0-47.0); HEMOGLOBIN 10.9 G/DL (12.0-16.0); LYMPHOCYTES % (AUTO) 26.7 % (20.0-45.0); MEAN CORPUSCULAR VOLUME 110 FL (80-99); MONOCYTES % (AUTO) 9.1 % (1.0-10.0); NEUTROPHILS % (AUTO) 61.1 % (45.0-75.0); PLATELET COUNT 123 K/UL (150-450); RED BLOOD COUNT 3.11 M/UL (4.20-5.40); RED CELL DISTRIBUTION WIDTH 18.6 % (11.6-14.8); WHITE BLOOD COUNT 6.4 K/UL (4.8-10.8)
[2017-09-29 07:24] LABS: ALANINE AMINOTRANSFERASE 137 U/L (12-78); ALBUMIN 2.6 G/DL (3.4-5.0); ALBUMIN/GLOBULIN RATIO 0.6 (1.0-2.7); ALKALINE PHOSPHATASE 48 U/L (46-116); ANION GAP 11 mmol/L (5-15); ASPARTATE AMINO TRANSFERASE 94 U/L (15-37); BILIRUBIN,TOTAL 0.7 MG/DL (0.2-1.0); BLOOD UREA NITROGEN 15 mg/dL (7-18); CALCIUM 7.4 MG/DL (8.5-10.1); CARBON DIOXIDE 20 MMOL/L (21-32); CHLORIDE 112 MMOL/L (98-107); POTASSIUM 3.8 MMOL/L (3.5-5.1); SODIUM 143 MMOL/L (136-145)
--- NOTE | 2017-09-29 07:56 | General Progress Note ---
Assessment/Plan Status: stable, progressing Assessment/Plan heparin drip monitor for bleeding abx per ID. monitor labs tawny Subjective ROS Limited/Unobtainable: No Constitutional: Reports: no symptoms HEENT: Reports: no symptoms Cardiovascular: Reports: no symptoms Respiratory: Reports: no symptoms Gastrointestinal/Abdominal: Reports: no symptoms Genitourinary: Reports: no symptoms Neurologic/Psychiatric: Reports: no symptoms Endocrine: Reports: no symptoms Hematologic/Lymphatic: Reports: no symptoms Allergies: Coded Allergies: No Known Allergies (Unverified , 09/27/17) All Systems: reviewed and negative except above Subjective no complaints. no sob. no chest pain. Acute DVT right femoral vein abd nallely- negative Objective Last 24 Hour Vital Signs Date Time Temp Pulse Resp B/P (MAP) Pulse Ox O2 Delivery O2 Flow Rate FiO2 09/29/17 07:00 74 20 107/54 100 Nasal Cannula 2.0 09/29/17 06:00 68 23 112/55 100 Nasal Cannula 2.0 09/29/17 05:00 76 23 110/57 97 Nasal Cannula 2.0 09/29/17 04:00 71 09/29/17 04:00 97.8 71 20 113/56 99 Nasal Cannula 2.0 97.8 09/29/17 03:00 72 20 103/54 100 Nasal Cannula 2.0 09/29/17 02:00 71 21 102/62 100 Nasal Cannula 2.0 09/29/17 01:00 73 21 106/58 100 Nasal Cannula 2.0 09/29/17 00:00 71 09/29/17 00:00 72 21 108/58 100 Nasal Cannula 2.0 09/29/17 00:00 98.2 73 21 113/50 100 Nasal Cannula 2.0 98.2 09/28/17 23:00 75 21 109/60 100 Nasal Cannula 2.0 09/28/17 22:00 77 20 107/59 99 Nasal Cannula 2.0 09/28/17 21:31 81 115/57 09/28/17 21:00 76 20 115/57 100 Nasal Cannula 2.0 09/28/17 20:00 98.3 82 17 102/57 98 Nasal Cannula 2.0 98.3 09/28/17 20:00 80 09/28/17 19:00 75 17 113/67 100 Nasal Cannula 2.0 09/28/17 18:00 77 17 110/66 100 Nasal Cannula 2.0 09/28/17 17:00 82 17 105/63 100 Nasal Cannula 2.0 09/28/17 16:00 77 09/28/17 16:00 98.7 78 18 110/65 100 Nasal Cannula 2.0 98.7 09/28/17 15:00 80 18 102/57 100 Nasal Cannula 2.0 09/28/17 14:00 79 18 105/55 100 Nasal Cannula 2.0 09/28/17 13:00 81 18 100/56 100 Nasal Cannula 2.0 09/28/17 12:38 83 100/59 09/28/17 12:00 80 18 100/59 100 Nasal Cannula 2.0 09/28/17 12:00 80 09/28/17 11:00 98.8 78 18 105/66 100 Nasal Cannula 2.0 98.8 09/28/17 10:00 80 20 110/64 100 Nasal Cannula 2.0 09/28/17 09:00 89 20 112/66 100 Nasal Cannula 2.0 09/28/17 08:00 87 09/28/17 08:00 93 22 107/56 99 Nasal Cannula 2.0 Intake and Output 09/28/17 09/29/17 19:00 07:00 Intake Total 1415.0 ml 1865.0 ml Output Total 450 ml 1000 ml Balance 965.0 ml 865.0 ml Intake Oral 200 ml IV Total 1415.0 ml 1665.0 ml Output Urine Total 450 ml 1000 ml # Voids 2 2 Laboratory Tests 09/28/17 12:15: Troponin I 1.067H 09/29/17 05:05: Troponin I 0.460H, White Blood Count 6.4, Red Blood Count 3.11L, Hemoglobin 10.9L, Hematocrit 34.3L, Mean Corpuscular Volume 110H, Mean Corpuscular Hemoglobin 35.0H, Mean Corpuscular Hemoglobin Concent 31.8L, Red Cell Distribution Width 18.6H, Platelet Count 123L, Mean Platelet Volume 6.5, Neutrophils (%) (Auto) 61.1, Lymphocytes (%) (Auto) 26.7, Monocytes (%) (Auto) 9.1, Eosinophils (%) (Auto) 2.2, Basophils (%) (Auto) 1.0, Sodium Level 143, Potassium Level 3.8, Chloride Level 112H, Carbon Dioxide Level 20L, Anion Gap 11 , Blood Urea Nitrogen 15, Creatinine 1.0, Estimat Glomerular Filtration Rate , Glucose Level 98, Calcium Level 7.4L, Total Bilirubin 0.7, Aspartate Amino Transf (AST/SGOT) 94H, Alanine Aminotransferase (ALT/SGPT) 137H, Alkaline Phosphatase 48, Total Protein 6.6, Albumin 2.6L, Globulin 4.0, Albumin/Globulin Ratio 0.6L Height (Feet): 5 Height (Inches): 9.00 Weight (Pounds): 139 General Appearance: WD/WN, alert Neck: supple Cardiovascular: normal rate Respiratory/Chest: chest wall non-tender, lungs clear, normal breath sounds Abdomen: normal bowel sounds, non tender, soft, no organomegaly Edema: no edema noted Arm (L), no edema noted Arm (R), no edema noted Leg (L), no edema noted Leg (R), no edema noted Pedal (L), no edema noted Pedal (R), no edema noted 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
[2017-09-29] MEDS ORDERED: Aspirin Baby 81mg ORAL SCH (09:00)
[2017-09-29] MEDS ORDERED: Heparin 5000 units/ml inj IV ONE (09:00)
[2017-09-29] MEDS ORDERED: Heparin 25,000u/D5W 500ml 500 ML IV SCH ×3 (09:00→22:00)
[2017-09-29] MEDS: Timolol 0.5% Op Soln 2.5ml BOTH EYES SCH ×2 (09:13→18:12)
--- NOTE | 2017-09-29 16:46 | Diagnostic Imaging Report ---
Indications: Reason For Exam: SOB Technique: IV administration 5.1 mCi 99m technetium macroaggregated albumin. Images obtained over the lungs in multiple projections. Previously, patient inhaled mCi aerosolized 99M technetium DTPA. Images obtained over the lungs in multiple projections Comparison: chest radiograph of 09/27/2017 Findings: Markedly heterogeneous perfusion is seen within both lungs. Appearance of this is largely matched on the aerosol images. However, the posterior and LPO views demonstrate a single focus of decreased activity at the left lung base which demonstrates activity on the aerosol images. No corresponding radiographic abnormality. This is probably larger than 2 segments. Impression: Area of perfusion aerosol mismatch at the right lung base is larger than 2 segments and therefore findings are deemed high probability for pulmonary embolus Critical value findings phoned to Dr. Morel at the time of interpretation
--- NOTE | 2017-09-29 20:00 | Progress Note ---
DATE: 09/29/2017 CARDIOLOGY PROGRESS NOTE SUBJECTIVE: The patient is awake, alert and in no distress. She was noted to have an acute lower extremity DVT and a V/Q scan was subsequently performed, which was high probability for pulmonary embolus. OBJECTIVE: VITAL SIGNS: Blood pressure 107/54, pulse 74, respiratory rate 20 and oxygen saturation is 97% to 100% on 2 liters nasal cannula. LUNGS: Clear. CARDIAC: Regular. Normal S1 and S2. ABDOMEN: Soft. EXTREMITIES: Trace edema. LABORATORY AND DIAGNOSTIC DATA: White count 6.4 and hemoglobin 10.9. Troponin down to 0.46. BUN 15, creatinine 1, potassium 3.8 and albumin 2.6. IMPRESSION: 1. Acute pulmonary embolus. 2. Acute myocardial infarction. 3. Acute DVT of the right lower extremity. 4. Metabolic acidosis, resolved. 5. Lactic acidosis, recovered, recovering shock liver. 6. Lbetvosu-du-zamgwd protein-calorie malnutrition. 7. Critical and guarded. PLAN: 1. Full anticoagulation. 2. Cardiac monitoring. 3. Empiric antibiotics. 4. Hydration. 5. Monitor cardiorenal parameters. 6. Metabolic profile and liver function studies. Kwaku Morel M.D. DR: STEFANIE JOB#: [id number] CC:
[2017-09-29] MEDS ORDERED: Milk of Magnesia 30ml Ud ORAL PRN (23:15)
[2017-09-30] VITALS: BP 100/59
[2017-09-30] MEDS: Piperacillin/Tazobactam 3.375 GM in D5W 110 ML IVPB SCH ×3 (01:01→17:15)
[2017-09-30 01:36] LABS: INR 1.1 (0.9-1.1)
[2017-09-30] MEDS ORDERED: Heparin 25,000u/D5W 500ml 500 ML IV SCH (02:20)
[2017-09-30 04:00] VITALS: BP 115/61
[2017-09-30 08:00] VITALS: BP 101/62
--- NOTE | 2017-09-30 08:12 | General Progress Note ---
Assessment/Plan Problem List: (1) Pulmonary embolism ICD Codes: I26.99 - Other pulmonary embolism without acute cor pulmonale SNOMED: 43784180 (2) DVT (deep venous thrombosis) ICD Codes: I82.409 - Acute embolism and thrombosis of unspecified deep veins of unspecified lower extremity SNOMED: 000404218 (3) Lactic acidosis ICD Codes: E87.2 - Acidosis SNOMED: 34295291 (4) Osteoarthritis ICD Codes: M19.90 - Unspecified osteoarthritis, unspecified site SNOMED: 223581601, 96772882 (5) Cervical pain ICD Codes: M54.2 - Cervicalgia SNOMED: 20590049, 17899629 (6) Degenerative disk disease SNOMED: 27298766 (7) Abdominal pain ICD Codes: R10.9 - Unspecified abdominal pain SNOMED: 26122879 Qualifiers: Qualified Codes: R10.84 - Generalized abdominal pain Status: stable, progressing Assessment/Plan heparin drip xarelto monitor for bleeding abx per ID. monitor labs tawny Subjective ROS Limited/Unobtainable: No Constitutional: Reports: malaise, weakness HEENT: Reports: no symptoms Cardiovascular: Reports: no symptoms Respiratory: Reports: no symptoms Gastrointestinal/Abdominal: Reports: no symptoms Genitourinary: Reports: no symptoms Neurologic/Psychiatric: Reports: no symptoms Endocrine: Reports: no symptoms Hematologic/Lymphatic: Reports: no symptoms Allergies: Coded Allergies: No Known Allergies (Unverified , 09/27/17) All Systems: reviewed and negative except above Subjective trace hemoptysis- only one episode. high prob v/q. on heparin drip Objective Last 24 Hour Vital Signs Date Time Temp Pulse Resp B/P (MAP) Pulse Ox O2 Delivery O2 Flow Rate FiO2 09/30/17 05:11 60 09/30/17 04:00 97.6 72 20 115/61 99 Nasal Cannula 2.0 97.6 09/30/17 00:00 97.7 68 20 100/59 99 Nasal Cannula 2.0 97.7 09/29/17 23:59 58 09/29/17 21:00 98.0 68 26 124/58 100 Nasal Cannula 2.0 98.0 09/29/17 21:00 63 123/60 09/29/17 20:00 70 20 123/60 100 Nasal Cannula 2.0 09/29/17 20:00 67 09/29/17 19:00 68 20 125/60 100 Nasal Cannula 2.0 09/29/17 18:00 98.5 78 20 122/62 100 Nasal Cannula 2.0 98.5 09/29/17 17:00 66 20 121/59 100 Nasal Cannula 2.0 09/29/17 16:00 62 20 112/66 100 Nasal Cannula 2.0 09/29/17 16:00 72 09/29/17 15:00 68 20 110/66 100 Nasal Cannula 2.0 09/29/17 14:00 71 20 108/60 100 Nasal Cannula 2.0 09/29/17 13:00 98.8 66 20 105/55 100 Nasal Cannula 2.0 98.8 09/29/17 12:00 85 09/29/17 12:00 69 20 110/58 100 Nasal Cannula 2.0 09/29/17 11:00 71 20 103/55 100 Nasal Cannula 2.0 09/29/17 10:00 16 20 105/55 100 Nasal Cannula 2.0 09/29/17 09:13 77 110/58 09/29/17 09:00 70 20 110/55 100 Nasal Cannula 2.0 Intake and Output 09/29/17 09/30/17 19:00 07:00 Intake Total 1166.342 ml 1374.452 ml Output Total 700 ml 700 ml Balance 466.342 ml 674.452 ml Intake Oral 0 ml 0 ml IV Total 1166.342 ml 1374.452 ml Output Urine Total 700 ml 700 ml # Voids 1 Laboratory Tests 09/29/17 16:35: Activated Partial Thromboplast Time > 150*H 09/30/17 00:30: Activated Partial Thromboplast Time 129H, Prothrombin Time 11.1, Prothromb Time International Ratio 1.1 Height (Feet): 5 Height (Inches): 9.00 Weight (Pounds): 156 Objective General Appearance: WD/WN, alert Neck: supple Cardiovascular: normal rate Respiratory/Chest: chest wall non-tender, lungs clear, normal breath sounds Abdomen: normal bowel sounds, non tender, soft, no organomegaly Edema: no edema noted Arm (L), no edema noted Arm (R), no edema noted Leg (L), no edema noted Leg (R), no edema noted Pedal (L), no edema noted Pedal (R), no edema noted 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
[2017-09-30] MEDS: Aspirin Baby 81mg ORAL SCH (08:53)
[2017-09-30] MEDS: Timolol 0.5% Op Soln 2.5ml BOTH EYES SCH ×2 (09:08→17:15)
[2017-09-30] MEDS: Xarelto 15mg tab ORAL SCH ×2 (09:44→17:15)
[2017-09-30 09:54] LABS: EOSINOPHILS % (AUTO) 3.5 % (0.0-3.0); HEMATOCRIT 33.1 % (37.0-47.0); HEMOGLOBIN 10.5 G/DL (12.0-16.0); LYMPHOCYTES % (AUTO) 27.3 % (20.0-45.0); MEAN CORPUSCULAR VOLUME 110 FL (80-99); MONOCYTES % (AUTO) 7.6 % (1.0-10.0); NEUTROPHILS % (AUTO) 60.6 % (45.0-75.0); PLATELET COUNT 141 K/UL (150-450); RED BLOOD COUNT 3.01 M/UL (4.20-5.40); RED CELL DISTRIBUTION WIDTH 18.9 % (11.6-14.8); WHITE BLOOD COUNT 6.5 K/UL (4.8-10.8)
[2017-09-30 10:14] LABS: ALANINE AMINOTRANSFERASE 93 U/L (12-78); ALBUMIN 2.5 G/DL (3.4-5.0); ALBUMIN/GLOBULIN RATIO 0.6 (1.0-2.7); ALKALINE PHOSPHATASE 49 U/L (46-116); ANION GAP 11 mmol/L (5-15); ASPARTATE AMINO TRANSFERASE 59 U/L (15-37); BILIRUBIN,TOTAL 0.8 MG/DL (0.2-1.0); BLOOD UREA NITROGEN 9 mg/dL (7-18); CALCIUM 7.1 MG/DL (8.5-10.1); CARBON DIOXIDE 21 MMOL/L (21-32); CHLORIDE 111 MMOL/L (98-107); CREATININE 0.9 MG/DL (0.55-1.30); POTASSIUM 3.8 MMOL/L (3.5-5.1); SODIUM 143 MMOL/L (136-145)
[2017-09-30 12:00] VITALS: BP 109/65
--- NOTE | 2017-09-30 12:56 | General Surgery Progress Note ---
General Surgery-Progress Note Subjective Symptoms: improved, pain absent, tolerating diet, passing flatus, BM Additional Comments doing well. no complaints. Objective Last 24 Hour Vital Signs Date Time Temp Pulse Resp B/P (MAP) Pulse Ox O2 Delivery O2 Flow Rate FiO2 09/30/17 08:53 60 101/63 09/30/17 08:00 66 09/30/17 08:00 97.4 72 18 101/62 99 Nasal Cannula 2.0 97.4 09/30/17 05:11 60 09/30/17 04:00 97.6 72 20 115/61 99 Nasal Cannula 2.0 97.6 09/30/17 00:00 97.7 68 20 100/59 99 Nasal Cannula 2.0 97.7 09/29/17 23:59 58 09/29/17 21:00 98.0 68 26 124/58 100 Nasal Cannula 2.0 98.0 09/29/17 21:00 63 123/60 09/29/17 20:00 70 20 123/60 100 Nasal Cannula 2.0 09/29/17 20:00 67 09/29/17 19:00 68 20 125/60 100 Nasal Cannula 2.0 09/29/17 18:00 98.5 78 20 122/62 100 Nasal Cannula 2.0 98.5 09/29/17 17:00 66 20 121/59 100 Nasal Cannula 2.0 09/29/17 16:00 62 20 112/66 100 Nasal Cannula 2.0 09/29/17 16:00 72 09/29/17 15:00 68 20 110/66 100 Nasal Cannula 2.0 09/29/17 14:00 71 20 108/60 100 Nasal Cannula 2.0 09/29/17 13:00 98.8 66 20 105/55 100 Nasal Cannula 2.0 98.8 I&O Intake and Output 09/29/17 09/30/17 19:00 07:00 Intake Total 1166.342 ml 1374.452 ml Output Total 700 ml 700 ml Balance 466.342 ml 674.452 ml Intake Oral 0 ml 0 ml IV Total 1166.342 ml 1374.452 ml Output Urine Total 700 ml 700 ml # Voids 1 Cardiovascular: RSR Respiratory: clear Abdomen: soft, flat, non-tender, present bowel sounds Extremities: no cyanosis Laboratory Tests Test 09/29/17 16:35 09/30/17 00:30 09/30/17 08:40 Activated Partial Thromboplast Time > 150 SEC (23-33) *H 129 SEC (23-33) H Prothrombin Time 11.1 SEC (9.30-11.50) Prothromb Time International Ratio 1.1 (0.9-1.1) White Blood Count 6.5 K/UL (4.8-10.8) Red Blood Count 3.01 M/UL (4.20-5.40) L Hemoglobin 10.5 G/DL (12.0-16.0) L Hematocrit 33.1 % (37.0-47.0) L Mean Corpuscular Volume 110 FL (80-99) H Mean Corpuscular Hemoglobin 34.9 PG (27.0-31.0) H Mean Corpuscular Hemoglobin Concent 31.7 G/DL (32.0-36.0) L Red Cell Distribution Width 18.9 % (11.6-14.8) H Platelet Count 141 K/UL (150-450) L Mean Platelet Volume 7.3 FL (6.5-10.1) Neutrophils (%) (Auto) 60.6 % (45.0-75.0) Lymphocytes (%) (Auto) 27.3 % (20.0-45.0) Monocytes (%) (Auto) 7.6 % (1.0-10.0) Eosinophils (%) (Auto) 3.5 % (0.0-3.0) H Basophils (%) (Auto) 1.0 % (0.0-2.0) Sodium Level 143 MMOL/L (136-145) Potassium Level 3.8 MMOL/L (3.5-5.1) Chloride Level 111 MMOL/L (98-107) H Carbon Dioxide Level 21 MMOL/L (21-32) Anion Gap 11 mmol/L (5-15) Blood Urea Nitrogen 9 mg/dL (7-18) Creatinine 0.9 MG/DL (0.55-1.30) Estimat Glomerular Filtration Rate mL/min (>60) Glucose Level 94 MG/DL (74-106) Calcium Level 7.1 MG/DL (8.5-10.1) L Magnesium Level 1.8 MG/DL (1.8-2.4) Total Bilirubin 0.8 MG/DL (0.2-1.0) Aspartate Amino Transf (AST/SGOT) 59 U/L (15-37) H Alanine Aminotransferase (ALT/SGPT) 93 U/L (12-78) H Alkaline Phosphatase 49 U/L (46-116) Troponin I 0.164 ng/mL (0.000-0.056) Pro-B-Type Natriuretic Peptide 3453 pg/mL (0-125) H Total Protein 6.8 G/DL (6.4-8.2) Albumin 2.5 G/DL (3.4-5.0) L Globulin 4.3 g/dL Albumin/Globulin Ratio 0.6 (1.0-2.7) L Plan Problems: (1) Abdominal pain Assessment & Plan: abdominal pain resolved since admission. lactic acidosis resolved. labs improved. gallbladder normal on ultrasound. abdominal pain and elevated lft's likely related to low flow state. likely very dehydrated on admission as noted by lactic acidosis and now improved with resuscitation. no planned surgical intervention okay for diet will cont to follow with recs. thank you for this consultation Momo Porter September 30, 2017 12:56
--- NOTE | 2017-09-30 13:20 | Diagnostic Imaging Report ---
APPROVED REPORT CPT Code: 14110 Present Symptoms Comments: BILATERAL LEGS PAIN. RIGHT LEG: Venous imaging reveals acute thrombus in the common femoral vein. There is no evidence of thrombus within the superficial femoral, popliteal or tibial segments. Greater saphenous vein is within normal limits. LEFT LEG: Venous imaging reveals a patent deep venous system. There is no evidence of thrombus within the femoral, popliteal or tibial segments. The greater saphenous vein is also within normal limits. Doppler indicates normal spontaneous flow within these segments. BRADEN Canseco was notified of abnormal results at 0750 hours.
[2017-09-30 16:00] VITALS: BP 115/71
--- NOTE | 2017-09-30 17:15 | Cardiology Report ---
APPROVED REPORT EKG Measurement Heart [id number] NM [id number] Normal sinus rhythm Incomplete right bundle branch block Nonspecific ST and T wave abnormality Abnormal ECG
[2017-09-30 20:00] VITALS: BP 130/70
[2017-10-01] VITALS: BP 119/66
[2017-10-01] MEDS: Piperacillin/Tazobactam 3.375 GM in D5W 110 ML IVPB SCH ×3 (01:09→17:34)
[2017-10-01 04:00] VITALS: BP 124/61
--- NOTE | 2017-10-01 05:45 | Progress Note ---
DATE: 09/30/2017 CARDIOLOGY PROGRESS NOTE SUBJECTIVE: The patient has had minimal hemoptysis. No signs of bleeding. Remains on full anticoagulation. OBJECTIVE: VITAL SIGNS: Blood pressure 115/61, pulse 72, respirations 20, and afebrile. No complaints of chest pain. HEENT: Oropharynx clear. NECK: Supple. LUNGS: Clear. CARDIAC: Regular rhythm and rate. Normal S1, S2 with a fourth heart sound. ABDOMEN: Soft. EXTREMITIES: Trace edema. LABORATORY DATA: White count 6.5 and hemoglobin 10.5. Potassium 3.8, BUN 9, and creatinine 0.9. Troponin down to 0.164. Pro-natriuretic peptide 3453. IMPRESSION: 1. Acute pulmonary embolus and deep venous thrombosis. 2. Acute myocardial infarction. 3. Acute diastolic congestive heart failure. 4. Resolved metabolic and lactic acidosis. 5. Jieqldhg-il-gtfyyy protein-calorie malnutrition. PLAN: 1. Continue full anticoagulation. 2. Discontinue intravenous fluids. 3. Continue antimicrobials. 4. Follow up laboratory studies. 5. Mobilize. 6. Transition to oral anticoagulant. Kwaku Morel M.D. DR: ELLEN JOB#: [id number] CC:
[2017-10-01 08:00] VITALS: BP 128/57
[2017-10-01] MEDS: Aspirin Baby 81mg ORAL SCH (09:00)
[2017-10-01] MEDS: Timolol 0.5% Op Soln 2.5ml BOTH EYES SCH ×2 (09:00→17:35)
[2017-10-01] MEDS: Xarelto 15mg tab ORAL SCH ×2 (09:45→17:34)
--- NOTE | 2017-10-01 11:15 | General Progress Note ---
Assessment/Plan Problem List: (1) Pulmonary embolism ICD Codes: I26.99 - Other pulmonary embolism without acute cor pulmonale SNOMED: 07029349 (2) DVT (deep venous thrombosis) ICD Codes: I82.409 - Acute embolism and thrombosis of unspecified deep veins of unspecified lower extremity SNOMED: 152230200 (3) Lactic acidosis ICD Codes: E87.2 - Acidosis SNOMED: 79215457 (4) Osteoarthritis ICD Codes: M19.90 - Unspecified osteoarthritis, unspecified site SNOMED: 449495617, 42941468 (5) Cervical pain ICD Codes: M54.2 - Cervicalgia SNOMED: 30930919, 23330188 (6) Degenerative disk disease SNOMED: 19575816 (7) Abdominal pain ICD Codes: R10.9 - Unspecified abdominal pain SNOMED: 29842289 Qualifiers: Qualified Codes: R10.84 - Generalized abdominal pain Status: stable, progressing Assessment/Plan off heparin drip xarelto monitor for bleeding abx per ID. monitor labs pt/ot eval dc planning Subjective ROS Limited/Unobtainable: No Constitutional: Reports: no symptoms HEENT: Reports: no symptoms Cardiovascular: Reports: no symptoms Respiratory: Reports: no symptoms Gastrointestinal/Abdominal: Reports: no symptoms Genitourinary: Reports: no symptoms Neurologic/Psychiatric: Reports: no symptoms Endocrine: Reports: no symptoms Hematologic/Lymphatic: Reports: no symptoms Allergies: Coded Allergies: No Known Allergies (Unverified , 09/27/17) All Systems: reviewed and negative except above Subjective no complaints. no chest pain no sob. no bleeding. Objective Last 24 Hour Vital Signs Date Time Temp Pulse Resp B/P (MAP) Pulse Ox O2 Delivery O2 Flow Rate FiO2 10/01/17 09:45 67 128/57 10/01/17 08:00 97.9 64 24 128/57 96 Nasal Cannula 2.0 97.9 67 10/01/17 08:00 62 10/01/17 04:00 97.7 64 20 124/61 96 Room Air 97.7 10/01/17 04:00 72 10/01/17 00:00 67 10/01/17 00:00 98.1 73 20 119/66 94 Room Air 98.1 09/30/17 21:55 64 130/70 09/30/17 20:00 86 09/30/17 20:00 98.7 80 18 130/70 96 Room Air 98.7 09/30/17 16:00 77 09/30/17 16:00 96.0 72 18 115/71 96 Room Air 96.0 09/30/17 12:00 73 09/30/17 12:00 96.8 65 20 109/65 99 Nasal Cannula 2.0 96.8 Intake and Output 09/30/17 10/01/17 19:00 07:00 Intake Total 1733.871 ml 810.0 ml Balance 1733.871 ml 810.0 ml Intake Oral 200 ml IV Total 1733.871 ml 610.0 ml # Voids 2 1 # Bowel Movements 1 1 Height (Feet): 5 Height (Inches): 9.00 Weight (Pounds): 154 Objective General Appearance: WD/WN, alert Neck: supple Cardiovascular: normal rate Respiratory/Chest: chest wall non-tender, lungs clear, normal breath sounds Abdomen: normal bowel sounds, non tender, soft, no organomegaly Edema: no edema noted Arm (L), no edema noted Arm (R), no edema noted Leg (L), no edema noted Leg (R), no edema noted Pedal (L), no edema noted Pedal (R), no edema noted 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
[2017-10-01 12:00] VITALS: BP 123/77
[2017-10-01] MEDS ORDERED: Milk of Magnesia 30ml Ud ORAL PRN (12:00)
[2017-10-01 16:00] VITALS: BP 133/74
--- NOTE | 2017-10-01 18:35 | General Surgery Progress Note ---
General Surgery-Progress Note Subjective Symptoms: improved, pain absent, tolerating diet, voiding well, passing flatus Additional Comments no acute events. doing well. tolerating diet. +flatus +BM Objective Last 24 Hour Vital Signs Date Time Temp Pulse Resp B/P (MAP) Pulse Ox O2 Delivery O2 Flow Rate FiO2 10/01/17 16:00 97.5 74 20 133/74 96 Nasal Cannula 2.0 97.5 10/01/17 16:00 74 10/01/17 12:00 97.6 62 24 123/77 96 Nasal Cannula 2.0 97.6 10/01/17 12:00 70 10/01/17 09:45 67 128/57 10/01/17 08:00 97.9 64 24 128/57 96 Nasal Cannula 2.0 97.9 67 10/01/17 08:00 62 10/01/17 04:00 97.7 64 20 124/61 96 Room Air 97.7 10/01/17 04:00 72 10/01/17 00:00 67 10/01/17 00:00 98.1 73 20 119/66 94 Room Air 98.1 09/30/17 21:55 64 130/70 09/30/17 20:00 86 09/30/17 20:00 98.7 80 18 130/70 96 Room Air 98.7 I&O Intake and Output 09/30/17 10/01/17 19:00 07:00 Intake Total 1733.871 ml 810.0 ml Balance 1733.871 ml 810.0 ml Intake Oral 200 ml IV Total 1733.871 ml 610.0 ml # Voids 2 1 # Bowel Movements 1 1 Cardiovascular: RSR Respiratory: clear Abdomen: soft, flat, non-tender, present bowel sounds Extremities: no cyanosis Plan Problems: (1) Abdominal pain Assessment & Plan: abdominal pain resolved since admission. lactic acidosis resolved. labs improved. gallbladder normal on ultrasound. abdominal pain and elevated lft's likely related to low flow state. likely very dehydrated on admission as noted by lactic acidosis and now improved with resuscitation. no planned surgical intervention diet as tolerated okay to d/c from surgical standpoint thank you for this consultation Momo Porter October 01, 2017 18:35
[2017-10-01 20:00] VITALS: BP 134/82
--- NOTE | 2017-10-01 21:15 | Progress Note ---
DATE: 10/01/2017 CARDIOLOGY PROGRESS NOTE SUBJECTIVE: The patient has been ambulating, but gets short of breath. Her oxygen saturation at rest is 94% to 96%. She is on oral anticoagulation at this time. OBJECTIVE: VITAL SIGNS: Blood pressure 128/57, pulse 67, and respiratory rate 24. LUNGS: Clear. CARDIAC: Regular. Normal S1 and S2. ABDOMEN: Soft. EXTREMITIES: No edema. IMPRESSION: 1. Acute DVT and pulmonary embolus. 2. Status post sepsis with shock. 3. Acute myocardial infarction. 4. Acute diastolic congestive heart failure, now compensated, resolved acidosis. 5. Vyadxlqm-av-hkwqzo protein-calorie malnutrition. PLAN: 1. Full anticoagulation. 2. Mobilize antimicrobials. 3. Follow up laboratory studies. 4. Check O2 saturation following ambulation. 5. Discharge plan. Kwaku Morel M.D. DR: STEFANIE JOB#: [id number] CC:
[2017-10-02] VITALS: BP 126/71
[2017-10-02] MEDS: Piperacillin/Tazobactam 3.375 GM in D5W 110 ML IVPB SCH ×2 (01:00→10:00)
[2017-10-02 04:00] VITALS: BP 139/77
[2017-10-02 08:00] VITALS: BP 130/82
[2017-10-02] MEDS ORDERED: COREG3.125 MG ORAL (08:49)
[2017-10-02] MEDS ORDERED: ASPIRIN81 MG ORAL (08:49)
[2017-10-02] MEDS ORDERED: XARELTO15 MG ORAL (08:49)
[2017-10-02 09:00] LABS: HEMATOCRIT 36.4 % (37.0-47.0); HEMOGLOBIN 11.6 G/DL (12.0-16.0); MEAN CORPUSCULAR VOLUME 112 FL (80-99); PLATELET COUNT 197 K/UL (150-450); RED BLOOD COUNT 3.26 M/UL (4.20-5.40); RED CELL DISTRIBUTION WIDTH 19.2 % (11.6-14.8)
[2017-10-02] MEDS ORDERED: Aspirin Baby 81mg ORAL SCH (09:00)
[2017-10-02 09:26] LABS: ALANINE AMINOTRANSFERASE 70 U/L (12-78); ALBUMIN/GLOBULIN RATIO 0.6 (1.0-2.7); ALKALINE PHOSPHATASE 61 U/L (46-116); ANION GAP 11 mmol/L (5-15); ASPARTATE AMINO TRANSFERASE 31 U/L (15-37); BILIRUBIN,TOTAL 0.6 MG/DL (0.2-1.0); BLOOD UREA NITROGEN 5 mg/dL (7-18); CARBON DIOXIDE 21 MMOL/L (21-32); CHLORIDE 111 MMOL/L (98-107); POTASSIUM 3.7 MMOL/L (3.5-5.1); SODIUM 143 MMOL/L (136-145)
[2017-10-02 09:56] VITALS: BP 130/82
[2017-10-02] MEDS: Xarelto 15mg tab ORAL SCH (09:56)
[2017-10-02] MEDS: Timolol 0.5% Op Soln 2.5ml BOTH EYES SCH (09:57)
[2017-10-02] MEDS ORDERED: NS 500ML ONE (11:59)
[2017-10-02] MEDS ORDERED: Tubing IV Secondary IV ONE (11:59)
--- NOTE | 2017-10-02 13:41 | Diagnostic Imaging Report ---
Indication: Cough Technique: One view of the chest Comparison: 09/27/2017 Findings: Bilateral hazy opacities are now present, suggest bilateral pleural effusions, although could to some extent be an artifact of overlying soft tissue. The heart size is normal. The upper lungs are clear. Impression: New bilateral basilar hazy opacities, could reflect bilateral pleural effusions.
--- NOTE | 2017-10-02 14:57 | General Progress Note ---
Assessment/Plan Status: stable Assessment/Plan encephalopathy resolving anxiety -prn ativan Subjective Date patient seen: October 02, 2017 Neurologic/Psychiatric: Reports: anxiety, emotional problems Allergies: Coded Allergies: No Known Allergies (Unverified , 09/27/17) Objective Last 24 Hour Vital Signs Date Time Temp Pulse Resp B/P (MAP) Pulse Ox O2 Delivery O2 Flow Rate FiO2 10/02/17 09:56 66 130/82 10/02/17 08:00 97.8 66 20 130/82 97 Room Air 97.8 10/02/17 08:00 70 10/02/17 04:00 96.7 65 18 139/77 100 Room Air 96.7 10/02/17 04:00 68 10/02/17 00:00 97.2 65 18 126/71 96 Room Air 97.2 10/02/17 00:00 75 10/01/17 22:07 70 134/82 10/01/17 20:00 73 10/01/17 20:00 96.4 74 18 134/82 95 Room Air 96.4 70 10/01/17 16:00 97.5 74 20 133/74 96 Nasal Cannula 2.0 97.5 10/01/17 16:00 74 Intake and Output 10/01/17 10/02/17 19:00 07:00 Intake Total 387.5 ml 110.0 ml Balance 387.5 ml 110.0 ml Intake Oral 360 ml IV Total 27.5 ml 110.0 ml # Voids 2 4 Laboratory Tests 10/02/17 08:15: White Blood Count 6.0, Red Blood Count 3.26L, Hemoglobin 11.6L, Hematocrit 36.4L , Mean Corpuscular Volume 112H, Mean Corpuscular Hemoglobin 35.6H, Mean Corpuscular Hemoglobin Concent 31.9L, Red Cell Distribution Width 19.2H, Platelet Count 197, Mean Platelet Volume 7.3, Neutrophils (%) (Auto) , Lymphocytes (%) (Auto) , Monocytes (%) (Auto) , Eosinophils (%) (Auto) , Basophils (%) (Auto) , Differential Total Cells Counted 100, Neutrophils % ( Manual) 62, Lymphocytes % (Manual) 26, Monocytes % (Manual) 11H, Eosinophils % ( Manual) 1, Basophils % (Manual) 0, Band Neutrophils 0, Platelet Estimate Adequate, Platelet Morphology Normal, Polychromasia 1+, Hypochromasia 1+, Anisocytosis 2+, Macrocytosis 2+, Sodium Level 143, Potassium Level 3.7, Chloride Level 111H, Carbon Dioxide Level 21, Anion Gap 11, Blood Urea Nitrogen 5L, Creatinine 1.0, Estimat Glomerular Filtration Rate , Glucose Level 128H, Calcium Level 8.0L, Magnesium Level 2.2, Total Bilirubin 0.6, Aspartate Amino Transf (AST/SGOT) 31, Alanine Aminotransferase (ALT/SGPT) 70, Alkaline Phosphatase 61, Pro-B-Type Natriuretic Peptide 4978H, Total Protein 7.8, Albumin 3.0L, Globulin 4.8, Albumin/Globulin Ratio 0.6L Height (Feet): 5 Height (Inches): 9.00 Weight (Pounds): 153 General Appearance: WD/WN, no apparent distress, alert Neurologic: oriented x 3, responsive, depressed affect [place] M.D. October 02, 2017 14:57
--- NOTE | 2017-10-02 22:45 | Progress Note ---
DATE: 10/02/2017 CARDIOLOGY PROGRESS NOTE SUBJECTIVE: The patient is ambulatory. No shortness of breath. Some weakness. OBJECTIVE: VITAL SIGNS: Blood pressure 130/82, pulse 66, respiratory rate 20, and afebrile. LUNGS: Clear. CARDIAC: Regular rhythm and rate. Normal S1 and S2 with a fourth heart sound. ABDOMEN: Soft. EXTREMITIES: Trace edema. LABORATORY AND DIAGNOSTIC DATA: Chest x-ray today reveals new bilateral hazy opacities, which may be effusions. White count 6 and hemoglobin 11.6. Potassium 3.7, BUN 5, and creatinine 1. Pro-natriuretic peptide 4900. Albumin is up to 3. IMPRESSION: 1. Acute DVT. 2. Acute pulmonary embolus. 3. Acute non ST-elevation myocardial infarction. 4. Moderate protein-calorie malnutrition, now improved. 5. Acute on chronic diastolic congestive heart failure. 6. Functional decline. 7. Pleural effusions. 8. Macrocytic anemia. PLAN: 1. Stable for outpatient followup. 2. Repeat chest x-ray as an outpatient. 3. Cardiovascular regimen reviewed and reconciled. 4. Full anticoagulation fpc. 5. Home physical therapy and fall risk to address fall risk. Kwaku Morel M.D. DR: STEFANIE JOB#: [id number] CC:
--- NOTE | 2017-10-03 01:15 | Discharge Summary ---
DATE OF ADMISSION: 09/27/2017 DATE OF DISCHARGE: 10/02/2017 ADMISSION DIAGNOSES: 1. Shortness of breath. 2. Acute myocardial infarction. 3. Possible sepsis. 4. Hypotension. DISCHARGE DIAGNOSES: 1. Shortness of breath. 2. Acute myocardial infarction. 3. Possible sepsis. 4. Hypotension. 5. Deep venous thrombosis and pulmonary embolism. HISTORY AND HOSPITAL COURSE: The patient is a pleasant female that presented with complaints of sudden onset of shortness of breath. She had an elevated troponin, was initially admitted to intensive care unit. She was briefly hypotensive. She had a venous duplex that showed acute DVT in the right femoral vein. She had a V/Q scan that was high probability for pulmonary embolism. She was started on heparin drip and later converted to Xarelto. She will be discharged home with Xarelto. 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 This was discussed with the patient. On discharge, she was stable. DISCHARGE MEDICATIONS: Please see discharge medication list for discharge medications. DIET: Cardiac diet. ACTIVITY: [place]-s[place]. Mike Daily M.D. DR: John JOB#: [id number] CC:
[2017-10-21] MEDS ORDERED: Xarelto 10mg tab ORAL SCH (09:00)
== END 2017-10-02 12:00 | disposition home or self-care (01) | DRG 871 ==
LOC: EDBD 16:10 → EMR 16:42 → EDBEDREQ 19:04 → ICU 19:23 → 2W 09-29 22:20 → 2E 10-01 10:47
DX: A41.9 Sepsis, unspecified organism (principal); R65.21 Severe sepsis with septic shock; I21.4 Non-ST elevation (NSTEMI) myocardial infarction; G93.40 Encephalopathy, unspecified; I26.99 Other pulmonary embolism without acute cor pulmonale; I50.33 Acute on chronic diastolic (congestive) heart failure; E43 Unspecified severe protein-calorie malnutrition; K72.00 Acute and subacute hepatic failure without coma; N17.9 Acute kidney failure, unspecified; E87.2 Acidosis; I82.411 Acute embolism and thrombosis of right femoral vein; J90 Pleural effusion, not elsewhere classified; E86.0 Dehydration; N18.9 Chronic kidney disease, unspecified; R73.9 Hyperglycemia, unspecified; F41.9 Anxiety disorder, unspecified; D64.9 Anemia, unspecified; Z68.22 Body mass index [BMI] 22.0-22.9, adult
CPT/HCPCS: 36415; 71045; 74176; 76700; 78579; 78580; 80053; 80076; 82607; 83605; 83690; 83735; 83880; 84443; 84484; 85007; 85025; 85610; 85730; 86850; 86900; 86901; 87040; 93005; 93306; 93970; 99291; A9503